=== PATIENT | female | born 1990 | race Caucasian/White ===

== ENCOUNTER 2020-10-09 22:46 | Emergency (ER) | payer OTHER ==
[~2020-10-09 22:46] MED LIST: IBUPROFEN600 MG PO; KEFLEX500 MG PO; SUBOXONE 8 MG-1 EACH SL; VIBRAMYCIN100 MG PO
[2020-10-10 03:32] LABS: HEMOGLOBIN 14.5 gm/dl (12.3-15.3); RED BLOOD COUNT 4.84 M/UL (4.00-5.10); WHITE BLOOD COUNT 10.5 K/UL (4.5-11.0)
[2020-10-10 04:00] LABS: BUN/CREATININE RATIO 9 (0-10)
[2020-10-10] MEDS ORDERED: CEPHALEXIN500 MG PO (04:36)
[2020-10-10] MEDS ORDERED: BACTRIM DS TAB1 EACH PO (04:36)
== END 2020-10-10 04:50 | disposition home or self-care (01) ==
LOC: ER1 22:46
PROVIDERS: Physician Assistant
DX: L03.116 Cellulitis of left lower limb (principal); F17.210 Nicotine dependence, cigarettes, uncomplicated
CPT/HCPCS: 80053; 85025; 85652; 86140; 87040; 99283

== ENCOUNTER 2021-11-15 16:13 | Emergency (ER) | payer OTHER ==
[~2021-11-15 16:13] MED LIST changes: +BACTRIM DS TAB1 EACH PO; +CEPHALEXIN500 MG PO
[2021-11-15 19:23] LABS: HEMOGLOBIN 13.8 gm/dl (12.3-15.3); RED BLOOD COUNT 4.73 M/UL (4.00-5.10); WHITE BLOOD COUNT 19.9 K/UL (4.5-11.0)
[2021-11-15 19:55] LABS: BUN/CREATININE RATIO 8 (0-10)
[2021-11-15] MEDS ORDERED: PERCOCET 5/325 T1 EA PO ×2 (23:24→23:41)
[2021-11-15] MEDS ORDERED: TORADOL 10 MG T10 MG PO (23:24)
== END 2021-11-15 23:47 | disposition home or self-care (01) ==
LOC: ER1 16:13
PROVIDERS: Emergency Medicine
DX: R10.11 Right upper quadrant pain (principal); F17.200 Nicotine dependence, unspecified, uncomplicated
CPT/HCPCS: 80053; 81001; 83690; 84703; 85025; 96361; 96374; 96375; 96376; 99284; J1885; J2270; J2405; Q9967

== ENCOUNTER → 2021-11-17 | Outpatient (CLI) | payer OTHER ==
[~2021-11-17] MED LIST changes: +PERCOCET 5/325 T1 EA PO; +TORADOL 10 MG T10 MG PO
== END ==
LOC: KOH-I 09:45
DX: R10.11 Right upper quadrant pain (principal); K82.8 Other specified diseases of gallbladder
CPT/HCPCS: 76705